=== PATIENT | male | born 2005 | race Caucasian/White ===

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

== ENCOUNTER 2023-03-07 20:49 | Emergency (ER) | payer BC, MEDICAID ==
[2023-03-07] MEDS ORDERED: TORAdol 30 mg Injection IV ONE (21:42)
[2023-03-07] MEDS ORDERED: Sodium Chloride 0.9% 1000 ML 1,000 ML IV STA (21:42)
[2023-03-07 21:45] VITALS: TEMP 98.8
[2023-03-07] MEDS ORDERED: Sodium Chloride 0.9% 1000 ML 1,000 ML ONE (21:50)
[2023-03-07] MEDS ORDERED: TORAdol 30 mg Injection ONE (21:50)
[2023-03-07 22:03] LABS: BASOPHIL % 0.3 % (0.0-0.4); Basophil (Absolute #) 0.03 x10^3/uL (0-0.4); Eosinophil % 0.9 % (0.00-5.0); Eosinophil (Absolute #) 0.09 x10^3/uL (0-0.5); Hematocrit 46.2 % (42-50); Hemoglobin 16.2 g/dL (12.5-18.0); IMMATURE GRAN # 0.03 x10^3u/L (0.00-0.03); IMMATURE GRAN % 0.3 % (0.00-0.4); Lymphocyte (Absolute #) 1.85 x10^3/uL (1.0-4.6); Lymphocytes % 19.2 % (24.0-44.0); Mean Cell Volume 90.9 fL (78-100); Mean Corpuscular Hemoglobin 31.9 pg (26-32); Mean Corpuscular Hgb Concent. 35.1 g/dL (32-36); Mean Platelet Volume 9.9 fL (7.5-11.0); Monocyte (Absolute #) 0.53 x10^3/uL (0.0-1.3); Monocytes % 5.5 % (0.0-12.0); Neutrophil % 73.8 % (36.0-66.0); Platelet Count 261 x10^3/uL (150-450); Red Blood Count 5.08 x10^6/uL (4.1-5.6); Red Cell Distribution Width 11.4 % (11.5-14.0); White Blood Count 9.6 x10^3/uL (4.0-10.5)
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
[2023-03-07 22:16] LABS: ALBUMIN 5.2 g/dL (3.5-5.0); ALKALINE PHOSPHATASE 98 U/L (38-126); ANION GAP 20.8 MEQ/L (5-15); BLOOD UREA NITROGEN 13 mg/dL (9-20); CHLORIDE 99 mmol/L (98-107); Calcium 9.7 mg/dL (8.4-10.2); Carbon Dioxide 25 mmol/L (22-30); Creatinine 1 1.14 mg/dL (0.66-1.25); EST GLOMERULAR FILTRATION RATE > 60.0 ML/MIN; Glucose 115 mg/dL (74-106); LIPASE 106 U/L (23-300); Potassium 3.7 mmol/L (3.5-5.1); SGOT/AST 32 U/L (17-59); SGPT/ALT 43 U/L (0-50); SODIUM 141 mmol/L (137-145); Total Protein 8.4 g/dL (6.3-8.2)
[2023-03-07 22:20] VITALS: RESP 20
--- NOTE | 2023-03-07 23:15 | XRAY ---
CLINICAL HISTORY:LLQ PAIN/COLITIS COMPARISON:02/13/2022. TECHNIQUE:A CT scan of the abdomen and pelvis was performed without IV contrast. Coronal and sagittal reconstructive images were also obtained. FINDINGS: Abdomen: The submucosa of ascending colon, transverse colon, and descending colon is replaced by fat attenuation, representing sequelae to colitis. No acute inflammatory changes were seen in the present study. No fat stranding or increased vascularity in the pericolonic region. The liver is of average size. No focal or diffuse parenchymal abnormality. The portal vein, intrahepatic biliary radicals, and the bile ducts are normal. The spleen, pancreas, and adrenal glands are unremarkable. The kidneys are unremarkable. They are normal in size and shape. No calculi or hydronephrosis. The gallbladder is distended. There is no evidence of wall thickening/ pericholecystic collection. The ascending colon, the transverse colon, the descending colon, visualized small bowel loops are unremarkable. There is no evidence of significant enlargement of the mesenteric or retroperitoneal lymph nodes. Pelvis: The urinary bladder is unremarkable. The rectosigmoid colon is unremarkable. The prostate appears unremarkable. No evidence of pelvic lymphadenopathy. No definite bony abnormalities could be depicted. IMPRESSION: 1. The submucosa of ascending colon, transverse colon, and descending colon are replaced by fat attenuation, representing sequelae to colitis. No acute inflammatory changes were seen in the present study. As compared to the prior study, the findings of the transverse colon are new, the rest of the findings are stable. 2. No other significant abnormality was detected in the abdomen and pelvis. Electronically Signed by: Christianne Fabian MD. (03/07/2023 22:13:58 CARDIAC NURSE)
[2023-03-08 00:06] VITALS: BP 135/89; PULSE 72
[2023-03-08] MEDS ORDERED: Flagyl 500 MG PO ONE (00:14)
[2023-03-08] MEDS ORDERED: Levofloxacin 500 MG Tablet PO ONE (00:14)
[2023-03-08] MEDS ORDERED: Levofloxacin 500 MG Tablet ONE (00:19)
[2023-03-08] MEDS ORDERED: Flagyl 500 MG ONE (00:19)
[2023-03-08 00:24] VITALS: O2SAT 98
[2023-03-08 00:36] LABS: Appearance Clear (Clear); Bacteria None Seen /HPF (None Seen); Bilirubin Negative (Negative); Blood Negative (Negative); Epithelial Cells None Seen /HPF (None Seen); Glucose, Urine Negative (Negative); Hyaline Casts NONE SEEN /LPF (0-2); Ketones 15 (Negative); Leukocyte Esterase Small (Negative); Nitrite Negative (Negative); Protein,Urine Dip Negative (Negative); RBC 0-2 /HPF (0-5)
[2023-03-08 00:37] LABS: ADD URINE CULTURE? NO (NO)
== END 2023-03-08 00:40 | disposition home or self-care (01) ==
LOC: ED 20:49
DX: K52.9 Noninfective gastroenteritis and colitis, unspecified (principal); R10.32 Left lower quadrant pain; Z79.899 Other long term (current) drug therapy; Z28.310 Unvaccinated for COVID-19
CPT/HCPCS: 36000; 36415; 74176; 80053; 81001; 83690; 85025; 96360; 96374; 99284; J1885; A9270-GY

== ENCOUNTER 2023-03-09 17:58 | Emergency (ER) | payer BC ==
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
[2023-03-09 18:11] VITALS: TEMP 98.8
[2023-03-09] MEDS ORDERED: Flagyl 500 MG PO ONE (18:55)
[2023-03-09] MEDS ORDERED: Levofloxacin 500 MG Tablet PO ONE (18:55)
[2023-03-09] MEDS ORDERED: Ativan 2 MG/1 ML VIAL IM ONE (18:56)
[2023-03-09 19:07] VITALS: RESP 18
[2023-03-09] MEDS ORDERED: Ativan 2 MG/1 ML VIAL IV ONE (19:09)
[2023-03-09] MEDS ORDERED: Levofloxacin 500 MG Tablet ONE (19:11)
[2023-03-09] MEDS ORDERED: Ativan 2 MG/1 ML VIAL ONE (19:11)
[2023-03-09] MEDS ORDERED: Flagyl 500 MG ONE (19:12)
[2023-03-09 19:22] LABS: Absolute Neutrophil Ct (ANC) 5.29 x10^3/uL (1.4-6.9); BASOPHIL % 0.4 % (0.0-0.4); Basophil (Absolute #) 0.03 x10^3/uL (0-0.4); Eosinophil % 0.7 % (0.00-5.0); Eosinophil (Absolute #) 0.05 x10^3/uL (0-0.5); Hematocrit 42.9 % (42-50); Hemoglobin 14.6 g/dL (12.5-18.0); IMMATURE GRAN # 0.02 x10^3u/L (0.00-0.03); IMMATURE GRAN % 0.3 % (0.00-0.4); Lymphocyte (Absolute #) 1.21 x10^3/uL (1.0-4.6); Lymphocytes % 17.2 % (24.0-44.0); Mean Cell Volume 92.5 fL (78-100); Mean Corpuscular Hemoglobin 31.5 pg (26-32); Mean Platelet Volume 10.1 fL (7.5-11.0); Monocyte (Absolute #) 0.42 x10^3/uL (0.0-1.3); Neutrophil % 75.4 % (36.0-66.0); Platelet Count 244 x10^3/uL (150-450); Red Blood Count 4.64 x10^6/uL (4.1-5.6); Red Cell Distribution Width 11.6 % (11.5-14.0)
[2023-03-09 19:30] LABS: Appearance Clear (Clear); Bacteria None Seen /HPF (None Seen); Bilirubin Negative (Negative); Blood Negative (Negative); Epithelial Cells None Seen /HPF (None Seen); Glucose, Urine Negative (Negative); Hyaline Casts NONE SEEN /LPF (0-2); Ketones 15 (Negative); Leukocyte Esterase Trace (Negative); Nitrite Negative (Negative); Ph 5.5 (4.6-8.0); Protein,Urine Dip Negative (Negative); RBC 0-2 /HPF (0-5); Specific Gravity <=1.005 (1.005-1.030); Urobilinogen 0.2 mg/dL (0.2); WBC 0-2 /HPF (0-5)
[2023-03-09 19:32] LABS: ADD URINE CULTURE? NO (NO)
[2023-03-09 19:36] LABS: ACETAMINOPHEN < 10 ug/ml (10-30); ALBUMIN 4.6 g/dL (3.5-5.0); ALKALINE PHOSPHATASE 82 U/L (38-126); ANION GAP 15.7 MEQ/L (5-15); BLOOD UREA NITROGEN 7 mg/dL (9-20); CHLORIDE 104 mmol/L (98-107); Calcium 9.3 mg/dL (8.4-10.2); Carbon Dioxide 24 mmol/L (22-30); Creatinine 1 1.12 mg/dL (0.66-1.25); EST GLOMERULAR FILTRATION RATE > 60.0 ML/MIN; ETHYL ALCOHOL < 10 mg/dL (0-10); Glucose 90 mg/dL (74-106); Potassium 3.5 mmol/L (3.5-5.1); SALICYLATE < 1.0 mg/dL (2-20); SGOT/AST 28 U/L (17-59); SGPT/ALT 34 U/L (0-50); SODIUM 140 mmol/L (137-145); Total Protein 7.2 g/dL (6.3-8.2)
[2023-03-09 19:41] LABS: Amphetamine,Urine NEGATIVE (NEGATIVE); Barbiturate,Urine NEGATIVE (NEGATIVE); Benzodiazepine,Urine POSITIVE (NEGATIVE); Cocaine,Urine NEGATIVE (NEGATIVE); Methadone,Urine NEGATIVE (NEGATIVE); Opiate,Urine NEGATIVE (NEGATIVE); PCP,Urine NEGATIVE (NEGATIVE); THC,Urine NEGATIVE (NEGATIVE)
[2023-03-09 20:03] VITALS: BP 117/73; PULSE 59; O2SAT 97
== END 2023-03-09 20:52 | disposition home or self-care (01) ==
LOC: ED 17:58
DX: F41.0 Panic disorder [episodic paroxysmal anxiety] (principal); R07.9 Chest pain, unspecified; F45.9 Somatoform disorder, unspecified; Z63.4 Disappearance and death of family member; Z28.310 Unvaccinated for COVID-19
CPT/HCPCS: 36000; 36415; 80053; 80143; 80179; 80307; 81001; 82077; 84484; 85025; 93005; 96374; 99284; J2060; A9270-GY

== ENCOUNTER 2024-01-05 20:55 | Emergency (ER) | payer BC, OTHER ==
[2024-01-05 21:07] VITALS: RESP 18; TEMP 98.2
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
[2024-01-05] MEDS ORDERED: TORAdol 30 mg Injection ONE (22:01)
[2024-01-05 22:04] VITALS: BP 114/80; PULSE 78
[2024-01-05] MEDS: TORAdol 30 mg Injection IM ONE (22:08)
[2024-01-05 22:31] VITALS: O2SAT 99
--- NOTE | 2024-01-06 08:39 | XRAY ---
Indication: Pain following fall. Multiple contiguous axial images obtained through the abdomen and pelvis without contrast. Comparison: March 07, 2023 Lung bases clear. Heart not enlarged. Noncontrasted stomach and bowel loops appear nonobstructed with normal appendix. No free fluid/air. Remaining liver, gallbladder, pancreas, spleen, adrenal glands, kidneys, ureters, bladder, and aorta are unremarkable for noncontrast exam. Osseous structures intact again with left L5 spondylolysis without listhesis. Impression: Again incidental L5 spondylolysis without listhesis. Remaining CT abdomen/pelvis without contrast exam is negative.
--- NOTE | 2024-01-06 08:41 | XRAY ---
Indication: Pain following fall. Multiple contiguous axial images obtained through the lumbar spine. Sagittal and coronal reformatted images obtained. Comparison: CT abdomen/pelvis March 07, 2023 Again left L5 spondylolysis without listhesis and tiny L3/L4 Schmorl nodes. Otherwise no acute fracture, suspicious bony lesions, or spinal canal stenosis. Facets are symmetric. Sagittal and coronal reformatted images again demonstrates normal alignment with vertebral body heights/disc spaces maintained. CT abdomen/pelvis reported separately. Impression: Again incidental L5 spondylolysis without listhesis and tiny L3/L4 Schmorl nodes. Remaining CT lumbar spine is normal.
== END 2024-01-05 22:58 | disposition home or self-care (01) ==
LOC: ED 20:55
DX: S30.0XXA Contusion of lower back and pelvis, initial encounter (principal); W17.89XA Other fall from one level to another, initial encounter; M25.552 Pain in left hip
CPT/HCPCS: 72131; 74176; 99283; J1885

== ENCOUNTER 2024-03-07 14:32 | Emergency (ER) | payer BC ==
--- NOTE | 2024-03-07 14:56 | ERPHSYRPT ---
- History of Present Illness Time Seen by Provider: 03/07/24 14:56 Source: patient Exam Limitations: no limitations Physician History: Patient had exposure to chlamydia. He reports discharge and dysuria. No testicular pain. Timing/Duration: day(s) (2) Activites at Onset: rest Quality: burning Onset Location: urethral Pain Radiation: none Severity of Pain-Max: mild Severity of Pain-Current: mild Modifying Factors: Improves With: nothing. Worsens With: urinating Associated Symptoms: dysuria, urinary frequency Prior abdominal problems: similar symptoms, STD Allergies/Adverse Reactions: No Known Drug Allergies Allergy (Verified 03/07/24 14:57) Home Medications: Valacyclovir HCl [valACYclovir] 1,000 mg PO DAILY 03/07/24 [History] Hx Tetanus, Diphtheria Vaccination/Date Given: No (unknown) Hx Influenza Vaccination/Date Given: No (unknown) Hx Pneumococcal Vaccination/Date Given: No Travel Risk - Emerging Infectious Disease Are you exhibiting symptoms associated with any current EIDs: No - Past Medical History Pertinent Past Medical History: Yes Neurological History: No Pertinent History ENT History: No Pertinent History Cardiac History: No Pertinent History Respiratory History: No Pertinent History Endocrine Medical History: No Pertinent History Musculoskeletal History: No Pertinent History GI Medical History: GERD, Other History: No Pertinent History Psycho-Social History: Anxiety, Depression, Other Male Reproductive Disorders: No Pertinent History Other Medical History: PSH: NONE. PMH: DEPRESSION, ANXIETY, E-CIGARETTE SMOKING - Past Surgical History Past Surgical History: No Neuro Surgical History: No Pertinent History Cardiac: No Pertinent History Respiratory: No Pertinent History Gastrointestinal: No Pertinent History Genitourinary: No Pertinent History Musculoskeletal: No Pertinent History Male Surgical History: No Pertinent History Significant Family History: no pertinent family hx - Social History Smoking Status: Never smoker Exposure to second hand smoke: Yes Drug Use: none Patient Lives Alone: No - Social Determinants of Health Will the patient participate in the screening: Yes Do you worry about a steady place to live?: No In the past 12 months,have you had to go without utilities?: No Transportation Issues: No Has anyone in your support network made you feel unsafe?: No Have you or anyone in your house had to go without enough: No - Review of Systems All Other Systems: Reviewed and Negative - Nursing Vital Signs Nursing Vital Signs: Initial Vital Signs Temperature 97.4 F 03/07/24 14:43 Pulse Rate 83 03/07/24 14:43 Blood Pressure 135/79 03/07/24 14:43 O2 Sat by Pulse Oximetry 99 03/07/24 14:43 Pain Scale Pain Intensity 0 - Physical Exam General Appearance: no apparent distress Gastrointestinal/Abdomen Exam: No tenderness Male Genital Exam: urethral discharge - Course Nursing assessment & vital signs reviewed: Yes Ordered Tests: Medication Summary Discontinued Medications Generic Name Dose Route Start Last Admin Trade Name Lance PRN Reason Stop Dose Admin Azithromycin 1,000 mg 03/07/24 14:55 03/07/24 15:13 Azithromycin 250 Mg Tablet PO 03/07/24 14:56 1,000 mg STAT ONE Administration Azithromycin Confirm 03/07/24 15:05 Azithromycin 250 Mg Tablet Administered 03/07/24 15:06 Dose 1,000 mg .ROUTE .STK-MED ONE Ceftriaxone Sodium Confirm 03/07/24 15:05 Ceftriaxone Sodium 1000 Mg Inj Vial Administered 03/07/24 15:06 Dose 1,000 mg .ROUTE .STK-MED ONE Ceftriaxone Sodium 1,000 mg 03/07/24 15:10 03/07/24 15:12 Ceftriaxone Sodium 1000 Mg Inj Vial IM 03/07/24 15:11 1,000 mg STAT ONE Administration Ceftriaxone Sodium 1 gm in 100 mls @ 200 mls/hr 03/07/24 14:54 03/07/24 15:13 Rocephin 1 Gm / 100 Ml Nacl IV 03/07/24 15:23 Not Given STAT ONE - Progress Progress Note: 03/07/24 15:15 Patient given 1g Rocephin and 1g Azithro. Patient refuses HIV and RPR today. Advised patient to f/u with PCP for recheck at 6 weeks. Counseled pt/family regarding: diagnosis, need for follow-up Medical Desision Making - Diagnostic Testing Diagnostic test were ordered, analyzed, and reviewed by me: Yes Radiological Interpretation: Interpreted by me - Risk of complications The pt has a mod risk of morbidity or mortality based on: Need for prescription drug management - Departure Departure Disposition: Home Clinical Impression: Chlamydia contact, Urethral discharge in male, Dysuria Condition: Good Critical Care Time: No Referrals: OSMAN ELLISON NP [Primary Care Provider] - Follow up/PCP as directed Instructions: Chlamydia and gonorrhea
[2024-03-07 14:57] VITALS: BP 135/79; PULSE 83; TEMP 97.4; O2SAT 99
[2024-03-07] MEDS ORDERED: Zithromax 250 MG TABLET ONE (15:05)
[2024-03-07] MEDS ORDERED: Rocephin 1000 MG INJ ONE (15:05)
[2024-03-07] MEDS: Rocephin 1000 MG INJ IM ONE (15:12)
[2024-03-07] MEDS: ROCEPHIN 1 GM / 100 ML NaCl 1 GM/100 ML IVPB IV ONE (15:13)
[2024-03-07] MEDS: Zithromax 250 MG TABLET PO ONE (15:13)
== END 2024-03-07 15:39 | disposition home or self-care (01) ==
LOC: ED 14:32
DX: R36.9 Urethral discharge, unspecified (principal); R30.0 Dysuria; Z20.2 Contact with and (suspected) exposure to infections with a predominantly sexual mode of transmission; Z79.899 Other long term (current) drug therapy
CPT/HCPCS: 96372; 99283; J0696; A9270-GY

== ENCOUNTER 2024-06-28 13:49 | Emergency (ER) | payer MEDICAID ==
--- NOTE | 2024-06-28 14:06 | ERPHSYRPT ---
- History of Present Illness Source: patient Exam Limitations: no limitations Physician History: Patient said dysuria and some penile discharge. He says it is yellowish and thick. Is been going on for about 2 days. He does not have any fever chills nausea vomiting or other toxic or systemic symptoms. Urinating makes it worse nothing makes it better. He said UTIs from STDs in the past says this feels similar Allergies/Adverse Reactions: gabapentin Allergy (Verified 06/28/24 14:01) Home Medications: No Reportable Medications [No Reported Medications] 06/28/24 [History] Hx Tetanus, Diphtheria Vaccination/Date Given: No (unknown) Hx Influenza Vaccination/Date Given: No (unknown) Hx Pneumococcal Vaccination/Date Given: No Travel Risk - Emerging Infectious Disease Are you exhibiting symptoms associated with any current EIDs: No - Past Medical History Pertinent Past Medical History: No Neurological History: No Pertinent History ENT History: No Pertinent History Cardiac History: No Pertinent History Respiratory History: No Pertinent History Endocrine Medical History: No Pertinent History Musculoskeletal History: No Pertinent History GI Medical History: GERD, Other History: No Pertinent History Psycho-Social History: Anxiety, Depression, Other Male Reproductive Disorders: No Pertinent History Other Medical History: PSH: NONE. PMH: DEPRESSION, ANXIETY, E-CIGARETTE SMOKING - Past Surgical History Past Surgical History: No Neuro Surgical History: No Pertinent History Cardiac: No Pertinent History Respiratory: No Pertinent History Gastrointestinal: No Pertinent History Genitourinary: No Pertinent History Musculoskeletal: No Pertinent History Male Surgical History: No Pertinent History Significant Family History: no pertinent family hx - Social History Smoking Status: Never smoker Exposure to second hand smoke: Yes Drug Use: none Patient Lives Alone: No - Social Determinants of Health Will the patient participate in the screening: Yes Do you worry about a steady place to live?: No In the past 12 months,have you had to go without utilities?: No Transportation Issues: No Has anyone in your support network made you feel unsafe?: No Have you or anyone in your house had to go without enough: No - Review of Systems Constitutional: No Symptoms Eyes: No Symptoms Abdominal/Gastrointestinal: No Symptoms Genitourinary Symptoms: Dysuria, Penile Discharge Musculoskeletal: No Symptoms - Nursing Vital Signs Nursing Vital Signs: Initial Vital Signs Respiratory Rate 20 06/28/24 15:00 Pain Scale Pain Intensity 3 - Physical Exam General Appearance: no apparent distress Gastrointestinal/Abdomen Exam: soft, normal bowel sounds, tenderness Male Genital Exam: urethral discharge - Course Nursing assessment & vital signs reviewed: Yes Ordered Tests: Active Orders 24 hr Category Date Time Status CULTURE,WOUND Stat Lab 06/28/24 Ordered UA W/RFX UR CULTURE Stat Lab 06/28/24 14:02 Completed Lab/Rad Data: Laboratory Results 06/28/24 06/28/24 Range/Units 14:02 14:02 Urine Color Dark Yellow (Yellow) Urine Appearance Clear (Clear) Urine pH 5.0 (4.6-8.0) Ur Specific [place] >=1.030 A (1.005-1.030) Urine Protein Trace A (Negative) Urine Glucose (UA) Negative (Negative) mg/dL Urine Ketones Negative (Negative) Urine Blood Negative (Negative) Urine Nitrite Negative (Negative) Urine Bilirubin Negative (Negative) Urine Urobilinogen 1.0 A (0.2) mg/dL Ur Leukocyte Esterase Negative (Negative) U Hyaline Cast (Auto) None Seen (0-2) /LPF Urine Microscopic RBC 0-2 (0-5) /HPF Urine Microscopic WBC 0-2 (0-5) /HPF Ur Epithelial Cells Rare (None Seen) /HPF Calcium Oxalate Crystal 6-10 A (None Seen) /HPF Urine Bacteria Rare A (None Seen) /HPF Urine Culture Reflexed NO (NO) Chlamydia DNA Probe NOT DETECTED (NEGATIVE) N.gonorrhoeae DNA Probe NOT DETECTED (NEGATIVE) - Progress Progress: unchanged Progress Note: Patient refused physical exam basically. He also refused to get cultures for GC chlamydia as well as a specimen of his urethra just for generalized cultures. I think that the patient definitely has an STD. He is not wanting any more treatment to be done. 06/28/24 16:53 - Departure Departure Disposition: Home Clinical Impression: Dysuria Condition: Stable Critical Care Time: No Referrals: OSMAN ELLISON NP [Primary Care Provider] - Follow up/PCP as directed
[2024-06-28 15:06] LABS: Appearance Clear (Clear); Bilirubin Negative (Negative); Blood Negative (Negative); Glucose, Urine Negative (Negative); Ketones Negative (Negative); Leukocyte Esterase Negative (Negative); Nitrite Negative (Negative); Protein,Urine Dip Trace (Negative); RBC 0-2 /HPF (0-5); Specific Gravity >=1.030 (1.005-1.030); WBC 0-2 /HPF (0-5)
[2024-06-28 15:07] LABS: Bacteria Rare /HPF (None Seen); Epithelial Cells Rare /HPF (None Seen); Hyaline Casts None Seen /LPF (0-2)
[2024-06-28 15:28] VITALS: RESP 20
[2024-06-28 16:13] LABS: CHLAMYDIA DNA NOT DETECTED (NEGATIVE); GC DNA Probe NOT DETECTED (NEGATIVE)
== END 2024-06-28 17:06 | disposition left against medical advice (07) ==
LOC: ED 13:49
DX: R30.0 Dysuria (principal); R36.9 Urethral discharge, unspecified
CPT/HCPCS: 81001; 87491; 87591; 99283